=== PATIENT | female | born 1985 | race Caucasian/White ===

== ENCOUNTER 2025-03-05 21:07 | Emergency (ER) | payer MEDICAID ==
[~2025-03-05] VITALS: Ht 165.1 cm; Wt 95.0 kg
[2025-03-05 22:36] VITALS: O2SAT 98
[2025-03-05] MEDS ORDERED: IBUP-2028 MT (22:46)
[2025-03-05] MEDS ORDERED: METH4TAB95 MT (22:46)
[2025-03-05 23:00] VITALS: BP 144/75; PULSE 89; RESP 18; TEMP 36.7; O2SAT 100
== END 2025-03-05 23:12 | disposition home or self-care (01) ==
LOC: ER 21:07
DX: T78.40XA Allergy, unspecified, initial encounter (principal); J45.909 Unspecified asthma, uncomplicated; Z98.890 Other specified postprocedural states; X58.XXXA Exposure to other specified factors, initial encounter
CPT/HCPCS: 81025; 99283